=== PATIENT | male | born 1975 | race Asian ===

== ENCOUNTER 2018-09-04 05:45 | Day surgery (SDC) | payer BC ==
[~2018-09-04] VITALS: Ht 182.9 cm; Wt 117.9 kg
[~2018-09-04 05:45] MED LIST: AMLO5TAB4 PO; ASPI-1393 PO; LOSA1TAB37 PO; PROP10TA10 GT
[2018-09-04] MEDS ORDERED: LACTATED RINGERS 1,000 ML IV SCH (06:30)
[2018-09-04] MEDS ORDERED: BUPIVACAINE HCL/PF 0.25% (2.5MG/ML) 10ML ONE (06:47)
[2018-09-04] MEDS ORDERED: BACITRACIN 50,000 UNITS/VIAL ONE (06:47)
[2018-09-04] MEDS ORDERED: ROCURONIUM BROMIDE 10MG/ML VIAL 5ML IV ONE (07:45)
[2018-09-04] MEDS ORDERED: PROPOFOL 200MG/20ML VIAL IV ONE (07:45)
[2018-09-04] MEDS ORDERED: GLYCOPYRROLATE 0.2 MG/ML 2ML VIAL ONE (07:45)
[2018-09-04] MEDS ORDERED: NEOSTIGMINE METHYLSULFATE 1MG/ML 10 ML VIAL ONE (07:45)
[2018-09-04] MEDS ORDERED: FENTANYL CITRATE/PF 50MCG/ML 2ML VIAL ONE ×2 (07:45→08:12)
[2018-09-04] MEDS ORDERED: MIDAZOLAM HCL 2 MG/2 ML VIAL ONE (07:45)
[2018-09-04] MEDS ORDERED: LIDOCAINE HCL/PF 1% 10 MG/ML 5ML VIAL ONE (07:46)
[2018-09-04] MEDS ORDERED: CEFAZOLIN SODIUM 1000MG/VIAL ONE (07:46)
[2018-09-04] MEDS ORDERED: DEXAMETHASONE 4MG/ML 1ML VIAL ONE (07:46)
[2018-09-04] MEDS ORDERED: SUCCINYLCHOLINE CHLORIDE 200MG/10ML IV ONE (07:46)
[2018-09-04] MEDS ORDERED: SODIUM CHLORIDE 0.9% 10ML VIAL ONE (07:46)
[2018-09-04] MEDS ORDERED: EPHEDRINE SULFATE 50MG/ML VIAL ONE (07:46)
[2018-09-04] MEDS ORDERED: ONDANSETRON HCL 4MG/2ML INJ ONE (07:46)
[2018-09-04] MEDS ORDERED: METOCLOPRAMIDE HCL 10MG/2ML VIAL ONE (07:46)
[2018-09-04] MEDS ORDERED: PHENYLEPHRINE HCL 10 MG/ML 1ML (IV VIAL) IV ONE (07:46)
[2018-09-04] MEDS ORDERED: SODIUM CHLORIDE 0.9% 1,000 ML IV ONE (08:50)
[2018-09-04] MEDS ORDERED: ONDANSETRON HCL 4MG/2ML INJ IV PRN (09:00)
[2018-09-04] MEDS ORDERED: MEPERIDINE HCL/PF 25MG/ML CPJ IV PRN (09:00)
[2018-09-04] MEDS ORDERED: MORPHINE SULFATE 2 MG/ML CPJ (NOT FOR IM USE) IV PRN (09:00)
[2018-09-04] MEDS ORDERED: HYDROMORPHONE HCL/PF 2MG/ML CPJ IV PRN (09:00)
[2018-09-04] MEDS ORDERED: HYDROCODONE/ACETAMINOPHEN 10/325MG TABLET PO PRN (09:15)
[2018-09-04 10:21] VITALS: BP 145/76
== END 2018-09-04 11:40 | disposition home or self-care (01) ==
LOC: OR 05:45
PROVIDERS: ATTEND Orthopaedic Surgery
DX: G56.02 Carpal tunnel syndrome, left upper limb (principal); I10 Essential (primary) hypertension; Z87.891 Personal history of nicotine dependence; E66.9 Obesity, unspecified
CPT/HCPCS: 64721; J0330; J0690; J1100; J2175; J2250; J2370; J2405; J2704; J2710; J2765; J3010; J3490; J7120; A4565